=== PATIENT | male | born 1960 | race Caucasian/White ===

== ENCOUNTER 2017-10-03 12:28 | Inpatient (IN) | payer OTHER ==
[~2017-10-03] VITALS: Ht 172.7 cm; Wt 106.3 kg
[2017-10-03 14:29] LABS: BASOPHILS # (AUTO) 0.1 (0.0-0.1); BASOPHILS % 0.6 % (0.0-1.0); EOSINOPHILS # (AUTO) 0.1 (0.0-0.4); EOSINOPHILS % 0.9 % (0.0-6.0); HEMATOCRIT 52.9 % (38.2-49.6); HEMOGLOBIN 18.2 g/dL (14.0-18.0); LYMPHOCYTES # (AUTO) 2.7 (1.0-3.2); LYMPHOCYTES % 24.5 % (18.0-39.1); MEAN CORPUSCULAR HEMOGLOBIN 33.3 pg (28-32); MEAN CORPUSCULAR HGB CONC 34.4 g/dL (31-35); MEAN CORPUSCULAR VOLUME 96.9 fL (81-99); MONOCYTES # (AUTO) 1.2 (0.2-0.8); MONOCYTES % 10.5 % (4.4-11.3); NEUTROPHILS # (AUTO) 7.1 (2.1-6.9); NEUTROPHILS % 63.1 % (38.7-80.0); PLATELET COUNT 334 x10e3/uL (140-360); RED BLOOD COUNT 5.46 x10e6/uL (4.3-5.7); RED CELL DISTRIBUTION WIDTH 14.2 % (11.7-14.4)
[2017-10-03 15:19] LABS: ALBUMIN 3.4 g/dL (3.5-5.0); ALBUMIN/GLOBULIN RATIO 0.9 (0.8-2.0); ANION GAP 13.3 mmol/L (8-16); CALCIUM 9.8 mg/dL (8.4-10.2); CREATININE, SERUM 1.61 mg/dL (0.72-1.25); POTASSIUM 4.3 mmol/L (3.5-5.1)
[2017-10-03] MEDS ORDERED: SODIUM CHLORIDE FLUSH 10 ML SYR INJ PRN (16:15)
[2017-10-03] MEDS ORDERED: PIPER-TAZ 3.375 GM 50 ML IV ONE (16:15)
[2017-10-03] MEDS ORDERED: VANCOMYCIN 1GM/NS 250 ML 250 ML IV ONE (16:15)
[2017-10-03] MEDS: MUPIROCIN 2% OINT 22 GM TUBE TOP SCH ×2 (20:26→20:36)
[2017-10-03] MEDS ORDERED: EDARBI80 MG PO (20:28)
[2017-10-03 21:58] VITALS: BP 107/58
[2017-10-03 22:04] VITALS: BP 107/58
[2017-10-03] MEDS ORDERED: SODIUM CHLORIDE 0.9% 250ML 250 ML ONE (22:13)
[2017-10-03 23:04] VITALS: BP 107/58
[2017-10-04] MEDS ORDERED: PIPER-TAZ 3.375 GM 100 ML IV SCH (01:00)
[2017-10-04] MEDS: PIPER-TAZ 3.375 GM 100 ML IV SCH ×3 (01:04→17:17)
[2017-10-04 05:04] VITALS: BP 107/55
[2017-10-04] MEDS ORDERED: ACETAMINOPHEN 325 MG TAB PO PRN (05:15)
[2017-10-04] MEDS: VANCOMYCIN 1GM/NS 250 ML 250 ML IV SCH ×2 (05:51→18:30)
[2017-10-04 06:23] LABS: BASOPHILS # (AUTO) 0.1 (0.0-0.1); BASOPHILS % 0.6 % (0.0-1.0); EOSINOPHILS # (AUTO) 0.1 (0.0-0.4); EOSINOPHILS % 1.1 % (0.0-6.0); HEMATOCRIT 48.6 % (38.2-49.6); HEMOGLOBIN 16.7 g/dL (14.0-18.0); LYMPHOCYTES # (AUTO) 2.1 (1.0-3.2); LYMPHOCYTES % 18.9 % (18.0-39.1); MEAN CORPUSCULAR HEMOGLOBIN 33.5 pg (28-32); MEAN CORPUSCULAR HGB CONC 34.4 g/dL (31-35); MEAN CORPUSCULAR VOLUME 97.6 fL (81-99); MONOCYTES # (AUTO) 1.2 (0.2-0.8); MONOCYTES % 11.1 % (4.4-11.3); NEUTROPHILS # (AUTO) 7.5 (2.1-6.9); NEUTROPHILS % 67.8 % (38.7-80.0); PLATELET COUNT 359 x10e3/uL (140-360); RED BLOOD COUNT 4.98 x10e6/uL (4.3-5.7); RED CELL DISTRIBUTION WIDTH 13.9 % (11.7-14.4)
[2017-10-04 07:01] LABS: ALBUMIN 3.1 g/dL (3.5-5.0); ALBUMIN/GLOBULIN RATIO 0.9 (0.8-2.0); ANION GAP 12.3 mmol/L (8-16); CALCIUM 9.3 mg/dL (8.4-10.2); CREATININE, SERUM 1.66 mg/dL (0.72-1.25); POTASSIUM 4.3 mmol/L (3.5-5.1)
[2017-10-04 08:00] VITALS: BP 105/77
[2017-10-04] MEDS ORDERED: AZILSARTAN MEDOXOMIL 80 MG PO SCH (09:00)
[2017-10-04] MEDS: AZILSARTAN 80 MG PO SCH (09:00)
[2017-10-04] MEDS: MUPIROCIN 2% OINT 22 GM TUBE TOP SCH ×3 (09:00→20:43)
[2017-10-04 12:00] VITALS: BP 102/70
[2017-10-04 16:00] VITALS: BP 111/73
[2017-10-04] MEDS ORDERED: SODIUM CHLORIDE 0.9% 250ML 250 ML ONE (16:48)
[2017-10-04 20:32] VITALS: BP 105/61
[2017-10-05] VITALS: BP 108/63
[2017-10-05] MEDS: PIPER-TAZ 3.375 GM 100 ML IV SCH ×3 (00:30→17:28)
[2017-10-05 04:00] VITALS: BP 118/66
[2017-10-05] MEDS: VANCOMYCIN 1GM/NS 250 ML 250 ML IV SCH ×2 (06:00→18:31)
[2017-10-05] MEDS ORDERED: MUPIROCIN 2% OINT 22 GM TUBE ONE (06:58)
[2017-10-05] MEDS ORDERED: BACITRACIN 50,000 UNIT VIAL ONE (06:58)
[2017-10-05] MEDS ORDERED: CHLORHEXIDINE GLUCONATE 4% 120 ML BTL ONE (07:15)
[2017-10-05 09:00] VITALS: BP 100/59
[2017-10-05] MEDS: COLLAGENASE OINTMENT 30 GM TUBE TP SCH (09:00)
[2017-10-05] MEDS: MUPIROCIN 2% OINT 22 GM TUBE TOP SCH ×3 (09:00→20:49)
[2017-10-05] MEDS: AZILSARTAN 80 MG PO SCH (09:00)
--- NOTE | 2017-10-05 09:28 | Operative Report ---
DATE OF PROCEDURE: October 05, 2017 PREOPERATIVE DIAGNOSIS: Wound of right lower leg with devitalized tissue. POSTOPERATIVE DIAGNOSIS: Full-thickness wound down to fascia. The dimensions are 20 cm squared. PROCEDURE: Sharp excisional debridement of wound, right leg, skin, subcutaneous tissue, fascia, 20 cm squared. ANESTHESIA: General. HISTORY: The patient is a 57-year-old male who had a large 100-pound rock fall on his right leg in the middle of August. Patient states that he went to the local area emergency room where they stapled the wound together. He was seen by his primary care doctor several weeks later, and the real were removed. The wound appears to have fallen part and appears to be infected. He was admitted late last night, and he now presents for debridement of devitalized tissues. Risks, benefits and alternatives of treatment were discussed with the patient. He is prepared to undergo the procedures outlined. DETAILS OF PROCEDURE: Patient was marked preoperatively in the holding area. He was brought to the operating theater. After the induction of adequate general anesthesia, he was prepped and draped in a supine position. A time out was performed. The procedure was begun by performing sharp excisional debridement of all the tissues, which appeared to be devitalized and marginally devitalized. At this point, the wound measured approximately 20 cm squared and is approximately 2 cm deep. Pulse lavage with several liters of antibiotic containing solution is carried out. Further small areas of devitalized tissue were then removed again. The wound was made hemostatic using the electrocautery. Bactroban ointment and Xeroform gauze were placed on the wound, and then a sterile dressing is applied. The patient was returned to the recovery room in satisfactory condition. He was then readmitted to his hospital bed for further care and treatment. Job#: [id number] RAUL
[2017-10-05 12:00] VITALS: BP 103/70
[2017-10-05 16:00] VITALS: BP 112/65
[2017-10-05] MEDS ORDERED: FENTANYL CITRATE/PF 100MCG/2 ML INJ IJ ONE (16:48)
[2017-10-05] MEDS ORDERED: MIDAZOLAM HCL 2 MG/2 ML VIAL INJ ONE (16:48)
[2017-10-05] MEDS ORDERED: ONDANSETRON HCL INJ 2 MG/ML VIAL IV ONE (16:51)
[2017-10-05] MEDS ORDERED: PROPOFOL IV EMULSION 10 MG/ML 20 ML VIAL IV ONE (16:51)
[2017-10-05] MEDS ORDERED: LIDOCAINE HCL 2% LOCAL INJ 5 ML SDV VIAL INJ ONE (16:51)
[2017-10-05] MEDS ORDERED: DEXAMETHASONE SOD PHOS INJ 4 MG/ML VIAL IV ONE (16:51)
[2017-10-05 20:00] VITALS: BP 109/67
[2017-10-06] VITALS: BP 127/67
[2017-10-06] MEDS: PIPER-TAZ 3.375 GM 100 ML IV SCH ×2 (01:00→09:03)
[2017-10-06 04:00] VITALS: BP 133/80
[2017-10-06] MEDS: VANCOMYCIN 1GM/NS 250 ML 250 ML IV SCH (05:29)
[2017-10-06 07:35] VITALS: BP 110/74
--- NOTE | 2017-10-06 08:15 | Consultation ---
DATE OF CONSULTATION: October 05, 2017 CHIEF COMPLAINT: Wound of right leg. HISTORY OF PRESENT ILLNESS: The patient is a 57-year-old male who states that a 100-pound bolder fell on the medial aspect of his right leg around the middle of August. The patient went to an emergency room where they stapled the wound together. He was followed up by his PCP. [place] were removed. The wound dehisced, and there appeared to be a large amount of devitalized tissue and infected tissue. The patient was admitted to the hospital and started on intravenous antibiotics. The following day he went to the OR for surgical debridement of all the devitalized tissues. PLAN: The patient will have negative pressure wound therapy and collagen dressings in order to allow the wound to heal appropriately. Once the wound is fully matured, will either undergo split-thickness skin grafting or allow the wound finish healing by secondary intention. I appreciate your confidence and it is greatly appreciated. Job#: [id number] RAUL
[2017-10-06] MEDS: COLLAGENASE OINTMENT 30 GM TUBE TP SCH (09:00)
[2017-10-06] MEDS: AZILSARTAN 80 MG PO SCH (09:00)
[2017-10-06] MEDS: MUPIROCIN 2% OINT 22 GM TUBE TOP SCH (09:00)
[2017-10-06 11:33] VITALS: BP 115/70
== END 2017-10-06 15:35 | disposition home or self-care (01) | DRG 902 ==
LOC: ER 12:28 → ERHOLD 16:25 → MED/SURG2 21:31
PROVIDERS: ADMIT Internal Medicine; ATTEND Internal Medicine
PROC: 0JBN0ZZ Excision of Right Lower Leg Subcutaneous Tissue and Fascia, Open Approach (ICD-10-PCS; principal; 2017-10-05 07:30)
DX: T81.30XA Disruption of wound, unspecified, initial encounter (principal); N17.9 Acute kidney failure, unspecified; L03.115 Cellulitis of right lower limb; T81.4XXA Infection following a procedure, initial encounter; D75.1 Secondary polycythemia; I12.9 Hypertensive chronic kidney disease with stage 1 through stage 4 chronic kidney disease, or unspecified chronic kidney disease; N18.3 Chronic kidney disease, stage 3 (moderate); B99.9 Unspecified infectious disease
CPT/HCPCS: 36415; 80053; 85025; 87071; 87186; 87205; 93926; 97605; 99284; J1100; J2001; J2250; J2405; J2543; J3370; J7050

== ENCOUNTER → 2017-10-09 | Outpatient (CLI) | payer OTHER ==
[~2017-10-09] MED LIST: EDARBI80 MG PO; LIDOCAINE VISC 2% SOLN 15 ML UDC ONE
== END ==
LOC: WCC 07:44
PROVIDERS: ATTEND Plastic Surgery
DX: S81.801A Unspecified open wound, right lower leg, initial encounter (principal); B96.5 Pseudomonas (aeruginosa) (mallei) (pseudomallei) as the cause of diseases classified elsewhere; B96.89 Other specified bacterial agents as the cause of diseases classified elsewhere; W45.8XXA Other foreign body or object entering through skin, initial encounter

== ENCOUNTER → 2017-10-11 | Outpatient (CLI) | payer OTHER ==
[~2017-10-11] MED LIST changes: -LIDOCAINE VISC 2% SOLN 15 ML UDC ONE
== END ==
LOC: WCC 08:35
PROVIDERS: ATTEND Plastic Surgery
DX: S81.801A Unspecified open wound, right lower leg, initial encounter (principal); B96.89 Other specified bacterial agents as the cause of diseases classified elsewhere; B96.5 Pseudomonas (aeruginosa) (mallei) (pseudomallei) as the cause of diseases classified elsewhere; W45.8XXA Other foreign body or object entering through skin, initial encounter

== ENCOUNTER → 2017-10-13 | Outpatient (CLI) | payer OTHER | LOC: WCC 09:57 | PROVIDERS: ATTEND Plastic Surgery | DX: S81.801A Unspecified open wound, right lower leg, initial encounter (principal); B96.89 Other specified bacterial agents as the cause of diseases classified elsewhere; B96.5 Pseudomonas (aeruginosa) (mallei) (pseudomallei) as the cause of diseases classified elsewhere; W45.8XXA Other foreign body or object entering through skin, initial encounter ==

== ENCOUNTER → 2017-10-16 | Outpatient (CLI) | payer OTHER | LOC: WCC 08:03 | PROVIDERS: ATTEND Plastic Surgery | DX: S81.801A Unspecified open wound, right lower leg, initial encounter (principal); B96.5 Pseudomonas (aeruginosa) (mallei) (pseudomallei) as the cause of diseases classified elsewhere; B96.89 Other specified bacterial agents as the cause of diseases classified elsewhere; W45.8XXA Other foreign body or object entering through skin, initial encounter ==

== ENCOUNTER → 2017-10-19 | Outpatient (CLI) | payer OTHER ==
[~2017-10-19] MED LIST changes: +LIDOCAINE VISC 2% SOLN 15 ML UDC ONE
== END ==
LOC: WCC 09:23
PROVIDERS: ATTEND Plastic Surgery
DX: S81.801A Unspecified open wound, right lower leg, initial encounter (principal); W45.8XXA Other foreign body or object entering through skin, initial encounter

== ENCOUNTER → 2017-10-23 | Outpatient (CLI) | payer OTHER ==
[~2017-10-23] MED LIST changes: -LIDOCAINE VISC 2% SOLN 15 ML UDC ONE
== END ==
LOC: WCC 07:54
PROVIDERS: ATTEND Plastic Surgery
DX: S81.801A Unspecified open wound, right lower leg, initial encounter (principal); W45.8XXA Other foreign body or object entering through skin, initial encounter

== ENCOUNTER → 2017-10-24 | Day surgery (SDC) | payer OTHER ==
[~2017-10-24] MED LIST changes: +BACITRACIN 50,000 UNIT VIAL ONE; +CEFAZOLIN SOD 1 GM VIAL ONE; +DEXAMETHASONE SOD PHOS INJ 4 MG/ML VIAL ONE; +FENTANYL CITRATE/PF 100MCG/2 ML INJ ONE; +KETOROLAC TROMETHAMINE 30 MG/ML VIAL ONE; +LIDOCAINE HCL 2% LOCAL INJ 5 ML SDV VIAL INJ ONE; +MIDAZOLAM HCL 2 MG/2 ML VIAL ONE; +MINERAL OIL STERILE 10ML VIAL ONE; +MUPIROCIN 2% OINT 22 GM TUBE ONE; +ONDANSETRON HCL INJ 2 MG/ML VIAL ONE; +PROPOFOL IV EMULSION 10 MG/ML 20 ML VIAL ONE; +SEVOFLURANE INHAL SOLN 250 ML PEN BTL ONE
--- OUTSIDE RECORDS SUMMARY | 2017-10-24 06:40 | XMS REPORT | Continuity of Care Document ---
Author Author [facility] Organization [facility] Address [address] [place] [address] Phone Unavailable Care Team Providers Care Business Development Specialist Name Role Phone ALETHA RESTREPO MD PCP Insurance Providers Guarantor Micaela Urbina Address [address] [place] [address] Email [email or web address] [facility] Policy Number [id number] Subscriber's Name Malick Urbina Relationship 18 Self / Same As Patient Group Number [id number] Advance Directives Directive Response Recorded Date/Time Does the patient have an advance directive? No 10/03/17 9:59pm If yes, is advance directive on file with [facility]? No 03/17/08 7:30am If not on file with [facility] will patient provide a copy? No 10/03/17 3:14pm Do you have a Directive to Physician? No 10/03/17 3:14pm Do you have a Medical Power of Repairer Screen Crusher? No 10/03/17 3:14pm Do you have an out of hospital Do Not Resuscitate Order? No 10/03/17 3:14pm Do you have any special needs we should be aware of? No 10/03/17 3:14pm Do you have a support person here with you today? Yes 10/03/17 3:14pm Did patient receive Notice of Privacy Practices? Yes 10/03/17 3:14pm Did patient receive patient rights and responsibilities? Yes 10/03/17 3:14pm Problems Medical Problem Onset Date Status Non-healing wound of lower extremity Unknown Medications Current Home Medications Medication Dose Units Route Directions Days Qty Instructions Start Date Azilsartan Medoxomil (Edarbi) 80 Mg Tablet 80 Mg Oral Daily Social History Social History Problem Response Recorded Date/Time Onset Date Status Hx Psychiatric Problems No 10/03/2017 9:59pm Not Applicable Not Applicable Hx Eating Disorder No 10/03/2017 9:59pm Not Applicable Not Applicable Hx Substance Use Disorder No 10/03/2017 9:59pm Not Applicable Not Applicable Hx Depression No 10/03/2017 9:59pm Not Applicable Not Applicable Hx Alcohol Use No 10/03/2017 9:59pm Not Applicable Not Applicable Hx Substance Use Treatment No 10/03/2017 9:59pm Not Applicable Not Applicable Hx Physical Abuse No 10/03/2017 9:59pm Not Applicable Not Applicable Smoking Status Start Date Stop Date Never Smoker Hospital Discharge Instructions No hospital discharge instruction information available. Plan of Care Discharge Date 10/06/17 3:35pm Disposition HOME, SELF-CARE Instructions/Education Provided Post Operative Pain Prescriptions See Medication Section Additional Instructions/Education FOLLOW UP WITH OUTPATIENT WOUND CARE CLINIC Functional Status Query Response Date Recorded Assistive Devices None October 03, 2017 10:04pm Ambulation Ability Independent October 03, 2017 10:04pm Toileting Ability Independent October 06, 2017 9:00am Allergies, Adverse Reactions, Alerts Allergen Type Severity Reaction Status Last Updated Iodinated Contrast- Oral and IV Dye Allergy Unknown Active 10/04/17 Immunizations No immunization information available. Vital Signs Acute Vital Signs Vital Response Date/Time Temperature (Fahrenheit) 96.6 degrees F (97.6 - 99.5) 10/06/2017 11:33am Pulse Pulse Rate (adult) 96 bpm (60 - 90) 10/06/2017 11:33am Respiratory Rate 19 bpm (12 - 24) 10/06/2017 11:33am Blood Pressure 115/70 mm Hg 10/06/2017 11:33am Height 5 ft 8 in 10/03/2017 1:12pm Weight 234.44 lb 10/03/2017 9:59pm Body Mass Index 35.6 kg/m^2 10/03/2017 9:59pm Results Laboratory Results Test Name Result Units Flags Reference Collection Date/Time Result Date/ Time Comments White Blood Count 11.02 x10e3/uL H 4.8-10.8 10/04/2017 5:49am 2017 6:42am Red Blood Count 4.98 x10e6/uL 4.3-5.7 10/04/2017 5:49am 10/04/2017 6: 42am Hemoglobin 16.7 g/dL 14.0-18.0 10/04/2017 5:49am 10/04/2017 6:42am Hematocrit 48.6 % 38.2-49.6 10/04/2017 5:49am 10/04/2017 6:42am Mean Corpuscular Volume 97.6 fL 81-99 10/04/2017 5:49am 10/04/2017 6: 42am Mean Corpuscular Hemoglobin 33.5 pg H 28-32 10/04/2017 5:49am 2017 6:42am Mean Corpuscular Hemoglobin Concent 34.4 g/dL 31-35 10/04/2017 5:49am 10/04/2017 6:42am Red Cell Distribution Width 13.9 % 11.7-14.4 10/04/2017 5:49am 2017 6:42am Platelet Count 359 x10e3/uL 140-360 10/04/2017 5:49am 10/04/2017 6: 42am Neutrophils (%) (Auto) 67.8 % 38.7-80.0 10/04/2017 5:49am 10/04/2017 6: 42am Lymphocytes (%) (Auto) 18.9 % 18.0-39.1 10/04/2017 5:49am 10/04/2017 6: 42am Monocytes (%) (Auto) 11.1 % 4.4-11.3 10/04/2017 5:49am 10/04/2017 6: 42am Eosinophils (%) (Auto) 1.1 % 0.0-6.0 10/04/2017 5:49am 10/04/2017 6: 42am Basophils (%) (Auto) 0.6 % 0.0-1.0 10/04/2017 5:49am 10/04/2017 6:42am IM GRANULOCYTES % 0.5 % 0.0-1.0 10/04/2017 5:49am 10/04/2017 6:42am Neutrophils # (Auto) 7.5 H 2.1-6.9 10/04/2017 5:49am 10/04/2017 6: 42am Lymphocytes # (Auto) 2.1 1.0-3.2 10/04/2017 5:49am 10/04/2017 6:42am Monocytes # (Auto) 1.2 H 0.2-0.8 10/04/2017 5:4910/04/2017 6:42am Eosinophils # (Auto) 0.1 0.0-0.4 10/04/2017 5:49am 10/04/2017 6:42am Basophils # (Auto) 0.1 0.0-0.1 10/04/2017 5:49am 10/04/2017 6:42am Absolute Immature Granulocyte (auto 0.06 x10e3/uL 0-0.1 10/04/2017 5: 49am 10/04/2017 6:42am Sodium Level 136 mmol/L 136-145 10/04/2017 5:49am 10/04/2017 7:31am Potassium Level 4.3 mmol/L 3.5-5.1 10/04/2017 5:49am 10/04/2017 7:31am Chloride Level 104 mmol/L 98-107 10/04/2017 5:49am 10/04/2017 7:31am Carbon Dioxide Level 24 mmol/L 22-29 10/04/2017 5:49am 10/04/2017 7: 31am Anion Gap 12.3 mmol/L 8-16 10/04/2017 5:49am 10/04/2017 7:31am Blood Urea Nitrogen 17 mg/dL 7-10/04/2017 5:49am 10/04/2017 7:31am Creatinine 1.66 mg/dL H 0.72-1.25 10/04/2017 5:49am 10/04/2017 7:31am BUN/Creatinine Ratio 10 6-10/04/2017 5:49am 10/04/2017 7:31am Estimat Glomerular Filtration Rate 43 ML/MIN L 60- 10/04/2017 5:49am 07/2017 7:31am Ranges were taken from the National Kidney Disease Education Program and the National Kid[employer] Foundation literature. Reference ranges: 60 or greater: Normal 16-59 (for 3 consecutive months): Chronic kidney disease 15 or less: Kidney failure Glucose Level 104 mg/dL 74-118 10/04/2017 5:49am 10/04/2017 7:31am Calcium Level 9.3 mg/dL 8.4-10.2 10/04/2017 5:49am 10/04/2017 7:31am Total Bilirubin 2.6 mg/dL H 0.2-1.2 10/04/2017 5:49am 10/04/2017 7:31am Aspartate Amino Transf (AST/SGOT) 20 IU/L 5-34 10/04/2017 5:49am 2017 7:31am Alanine Aminotransferase (ALT/SGPT) 23 IU/L 0-55 10/04/2017 5:49am 07/2017 7:31am Total Protein 6.5 g/dL 6.5-8.1 10/04/2017 5:49am 10/04/2017 7:31am Albumin 3.1 g/dL L 3.5-5.0 10/04/2017 5:49am 10/04/2017 7:31am Globulin 3.4 g/dL 2.3-3.5 10/04/2017 5:49am 10/04/2017 7:31am Albumin/Globulin Ratio 0.9 0.8-2.0 10/04/2017 5:49am 10/04/2017 7: 31am Alkaline Phosphatase 45 IU/L 40-150 10/04/2017 5:49am 10/04/2017 7: 31am Microbiology Results Procedure Source Organism/Result Collection Date/Time Result Date/Time Result Status Wound Culture Leg, Right CÉSAR PARAPSILOSIS 10/03/2017 1:32pm 10/06/2017 8:15am Final PSEUDOMONAS AERUGINOSA 10/03/2017 1:32pm 10/06/2017 8:15am Final Procedures Procedure Status Date Provider(s) Incision and drainage Completed 10/05/17 ECTOR ELLIOTT MD Encounters Encounter Location Arrival/Admit Date Discharge/Depart Date Attending Provider Discharged Inpatient [facility] 10/03/17 4:25pm 10/06/17 3:35pm ALETHA RESTREPO MD
--- NOTE | 2017-10-24 13:54 | Operative Report ---
DATE OF PROCEDURE: October 24, 2017 PREOPERATIVE DIAGNOSIS: Wound, right leg, 9 cm squared. POSTOPERATIVE DIAGNOSIS: Wound, right leg, 9 cm squared. OPERATIVE PROCEDURES: 1. Excisional preparation of wound for split-thickness skin grafting. 2. Split-thickness skin grafting wound, right leg, 9 cm squared. ANESTHESIA: General. HISTORY: The patient is a 57-year-old male who underwent debridement of a wound of the right leg several weeks ago. The wound is now amenable for split-thickness skin grafting. Risks, benefits and alternatives of treatment were discussed with the patient. He is prepared to undergo the procedures outlined. DETAILS OF PROCEDURE: Patient was marked preoperatively in the holding area. He was brought to the operating theater. After the induction of adequate general anesthesia, he was prepped and draped in a supine position. A time out was performed. The procedure was begun by gently curetting the colonized granulation tissue and then power-lavaging the wound with a liter of antibiotic-containing solution. At this point, a split-thickness skin graft was harvested from the right anterior thigh of approximately 13 to 14 thousandths of an inch thickness using a dermatome. The graft was then meshed in a 1-1/2 to 1 fashion and placed on the wound bed dermis side down and secured using surgical clips. Bactroban ointment and Xeroform gauze were placed on the wound, and then the wound care team placed a negative-pressure wound device VAC set for 150 mm of continuous negative pressure. The seal was noted to be satisfactory. The patient was returned to the recovery room in satisfactory condition and discharged with a postoperative instruction sheet as well as a followup appointment. Job#: [id number]
== END | disposition home or self-care (01) ==
LOC: OR 06:37
PROVIDERS: ATTEND Plastic Surgery
DX: S81.801A Unspecified open wound, right lower leg, initial encounter (principal); I10 Essential (primary) hypertension; X58.XXXA Exposure to other specified factors, initial encounter; Z01.810 Encounter for preprocedural cardiovascular examination
CPT/HCPCS: 15100; 93005; 97605; J0690; J1100; J1885; J2001; J2250; J2405

== ENCOUNTER → 2017-10-31 | Outpatient (CLI) | payer OTHER ==
[~2017-10-31] MED LIST changes: -BACITRACIN 50,000 UNIT VIAL ONE; -CEFAZOLIN SOD 1 GM VIAL ONE; -DEXAMETHASONE SOD PHOS INJ 4 MG/ML VIAL ONE; -FENTANYL CITRATE/PF 100MCG/2 ML INJ ONE; -KETOROLAC TROMETHAMINE 30 MG/ML VIAL ONE; -LIDOCAINE HCL 2% LOCAL INJ 5 ML SDV VIAL INJ ONE; -MIDAZOLAM HCL 2 MG/2 ML VIAL ONE; -MINERAL OIL STERILE 10ML VIAL ONE; -MUPIROCIN 2% OINT 22 GM TUBE ONE; -ONDANSETRON HCL INJ 2 MG/ML VIAL ONE; -PROPOFOL IV EMULSION 10 MG/ML 20 ML VIAL ONE; -SEVOFLURANE INHAL SOLN 250 ML PEN BTL ONE
== END ==
LOC: WCC 08:25
PROVIDERS: ATTEND Plastic Surgery
DX: T81.89XA Other complications of procedures, not elsewhere classified, initial encounter (principal); Y83.8 Other surgical procedures as the cause of abnormal reaction of the patient, or of later complication, without mention of misadventure at the time of the procedure; S81.801A Unspecified open wound, right lower leg, initial encounter; W45.8XXA Other foreign body or object entering through skin, initial encounter

== ENCOUNTER → 2017-11-06 | Outpatient (CLI) | payer OTHER ==
[~2017-11-06] MED LIST changes: +MUPIROCIN 2% OINT 22 GM TUBE ONE
== END ==
LOC: WCC 08:12
PROVIDERS: ATTEND Plastic Surgery
DX: T81.89XA Other complications of procedures, not elsewhere classified, initial encounter (principal); S81.801A Unspecified open wound, right lower leg, initial encounter; W45.8XXA Other foreign body or object entering through skin, initial encounter; Y83.8 Other surgical procedures as the cause of abnormal reaction of the patient, or of later complication, without mention of misadventure at the time of the procedure

== ENCOUNTER → 2017-11-20 | Outpatient (CLI) | payer OTHER ==
[~2017-11-20] MED LIST changes: -MUPIROCIN 2% OINT 22 GM TUBE ONE
== END ==
LOC: WCC 08:45
PROVIDERS: ATTEND Plastic Surgery
DX: S81.801A Unspecified open wound, right lower leg, initial encounter (principal); W45.8XXA Other foreign body or object entering through skin, initial encounter; Y83.8 Other surgical procedures as the cause of abnormal reaction of the patient, or of later complication, without mention of misadventure at the time of the procedure